=== PATIENT | male | born 1960 | race Caucasian/White ===

== ENCOUNTER 2024-01-26 06:50 | Observation (INO) | payer BC ==
[~2024-01-26] VITALS: Ht 177.8 cm; Wt 88.9 kg
[~2024-01-26 06:50] MED LIST: DILTIAZEM HCL360 MG PO
[2024-01-26 07:33] LABS: BASOPHILS % 0.1 % (0.0-1.0); EOSINOPHILS # (AUTO) 0.1 (0.0-0.4); EOSINOPHILS % 1.7 % (0.0-6.0); HEMATOCRIT 50.5 % (38.2-49.6); HEMOGLOBIN 16.1 g/dL (14.0-18.0); LYMPHOCYTES # (AUTO) 2.4 (1.0-3.2); LYMPHOCYTES % 32.9 % (18.0-39.1); MEAN CORPUSCULAR HEMOGLOBIN 29.7 pg (28-32); MEAN CORPUSCULAR HGB CONC 31.9 g/dL (31-35); MONOCYTES # (AUTO) 0.3 (0.2-0.8); MONOCYTES % 3.9 % (4.4-11.3); NEUTROPHILS # (AUTO) 4.4 (2.1-6.9); NEUTROPHILS % 61.1 % (38.7-80.0); PLATELET COUNT 325 x10e3/uL (140-360); RED BLOOD COUNT 5.43 x10e6/uL (4.3-5.7); WHITE BLOOD COUNT 7.26 x10e3/uL (4.8-10.8)
[2024-01-26 07:54] LABS: ALBUMIN/GLOBULIN RATIO 1.1 (0.8-2.0); ANION GAP 14.8 mmol/L (8-16); BILIRUBIN,TOTAL 0.8 mg/dL (0.2-1.2); CALCIUM 9.1 mg/dL (8.4-10.2); CREATININE, SERUM 1.22 mg/dL (0.72-1.25); POTASSIUM 3.8 mmol/L (3.5-5.1); TOTAL PROTEIN 7.5 g/dL (6.5-8.1)
[2024-01-26 07:59] LABS: TROPONIN I 0.015 ng/mL (0-0.300)
[2024-01-26 08:23] LABS: INFLUENZA A AG NEGATIVE (NEGATIVE); INFLUENZA B AG NEGATIVE (NEGATIVE)
[2024-01-26 08:24] LABS: CORONAVIRUS COVID-19 AG NEGATIVE (NEGATIVE)
[2024-01-26] MEDS: ASPIRIN 325 MG TAB EC PO SCH (09:59)
[2024-01-26] MEDS: ASPIRIN 81 MG CHEW TAB PO ONE (09:59)
[2024-01-26 11:10] VITALS: PULSE 67; RESP 18; O2SAT 100
[2024-01-26] MEDS ORDERED: ASPIRIN81 MG PO (11:32)
[2024-01-26 11:37] VITALS: PULSE 71; RESP 16; TEMP 98.4
[2024-01-26 12:41] VITALS: BP 160/97; PULSE 62; RESP 19; TEMP 97.7; O2SAT 99
[2024-01-26 16:00] VITALS: BP 157/77; PULSE 75; RESP 20; TEMP 98.1; O2SAT 99
[2024-01-26] MEDS ORDERED: ONDANSETRON HCL INJ 2MG/ML 2ML 2 MG/ML VIAL IV PRN (16:00)
[2024-01-26] MEDS ORDERED: ALBUTEROL/IPRATROPIUM 3 ML NEB NEB PRN (16:00)
[2024-01-26] MEDS ORDERED: HYDRALAZINE HCL 20 MG/ML VIAL IV PRN (16:15)
[2024-01-26 16:30] LABS: TROPONIN I 0.012 ng/mL (0-0.300)
[2024-01-26 20:00] VITALS: BP 129/84; PULSE 76; RESP 20; TEMP 98; O2SAT 98
[2024-01-26 20:12] VITALS: PULSE 75; RESP 18; O2SAT 98
[2024-01-26] MEDS ORDERED: ZOLPIDEM TARTRATE 5 MG TAB PO PRN (21:00)
[2024-01-27] VITALS (7 sets, daily range): BP systolic 129–148; BP diastolic 66–89; PULSE 69–85; RESP 18–20; TEMP 97–98.1; O2SAT 97–99
[2024-01-27 00:57] LABS: TROPONIN I 0.012 ng/mL (0-0.300)
[2024-01-27 05:52] LABS: BASOPHILS % 0.2 % (0.0-1.0); EOSINOPHILS # (AUTO) 0.1 (0.0-0.4); EOSINOPHILS % 0.8 % (0.0-6.0); HEMATOCRIT 48.5 % (38.2-49.6); HEMOGLOBIN 15.6 g/dL (14.0-18.0); LYMPHOCYTES # (AUTO) 2.1 (1.0-3.2); LYMPHOCYTES % 20.7 % (18.0-39.1); MEAN CORPUSCULAR HEMOGLOBIN 29.8 pg (28-32); MEAN CORPUSCULAR HGB CONC 32.2 g/dL (31-35); MEAN CORPUSCULAR VOLUME 92.7 fL (81-99); MONOCYTES # (AUTO) 0.3 (0.2-0.8); MONOCYTES % 2.9 % (4.4-11.3); NEUTROPHILS # (AUTO) 7.7 (2.1-6.9); NEUTROPHILS % 75.1 % (38.7-80.0); PLATELET COUNT 309 x10e3/uL (140-360); RED BLOOD COUNT 5.23 x10e6/uL (4.3-5.7); WHITE BLOOD COUNT 10.26 x10e3/uL (4.8-10.8)
[2024-01-27 06:21] LABS: ANION GAP 13.9 mmol/L (8-16); CREATININE, SERUM 1.11 mg/dL (0.72-1.25); POTASSIUM 3.9 mmol/L (3.5-5.1)
[2024-01-27] MEDS: NICOTINE 21 MG/EA PATCH TOP SCH (09:59)
== END 2024-01-27 15:51 | disposition home or self-care (01) ==
LOC: ER 07:06 → ERHOLD 09:03 → MED/SURG2 12:27
PROVIDERS: ADMIT Internal Medicine; ATTEND Internal Medicine
DX: I13.0 Hypertensive heart and chronic kidney disease with heart failure and stage 1 through stage 4 chronic kidney disease, or unspecified chronic kidney disease (principal); N18.2 Chronic kidney disease, stage 2 (mild); I50.33 Acute on chronic diastolic (congestive) heart failure; R06.00 Dyspnea, unspecified; F17.200 Nicotine dependence, unspecified, uncomplicated; Z71.6 Tobacco abuse counseling; Z11.52 Encounter for screening for COVID-19; I07.1 Rheumatic tricuspid insufficiency; Z88.0 Allergy status to penicillin; Z79.82 Long term (current) use of aspirin; Z79.899 Other long term (current) drug therapy; Z86.79 Personal history of other diseases of the circulatory system
CPT/HCPCS: 36415; 71046; 71250; 80048; 80053; 82550; 83880; 84484; 85025; 85379; 93005; 93306; 94799; 99284; G0378